=== PATIENT | female | born 1985 | race Caucasian/White ===

== ENCOUNTER 2020-09-09 02:15 | Emergency (ER) | payer OTHER ==
[2020-09-09 02:24] VITALS: BP 140/74; PULSE 103; TEMP 99.2; BMI 29.0
[2020-09-09 03:58] LABS: CHLORIDE 106 mmol/L (98-107); SODIUM 138 mmol/L (136-145)
[2020-09-09 04:00] LABS: BASO % 0.7 % (0-2.0); CALCIUM 8.9 mg/dL (8.5-10.1); EOS % 2.5 % (0-4.5); HEMOGLOBIN 13.2 GM/dL (10.7-15.3); LYMPH % 27.3 % (8-40); MCH 30.5 pg (25.7-33.7); MCHC 33.8 g/dl (32.0-36.0); MEAN CELL VOLUME 90.3 fl (80-96); MEAN PLT VOLUME 8.3 fl (7.5-11.1); MONO % 5.6 % (3.8-10.2); NEUT % 63.9 % (42.8-82.8); PLATELET COUNT 300 K/MM3 (134-434); RBC 4.32 M/mm3 (3.60-5.2); RDW 13.6 % (11.6-15.6); WHITE BLOOD COUNT 8.5 K/mm3 (4.0-10.0)
[2020-09-09 04:01] LABS: ANION GAP 5 MMOL/L (8-16); BLOOD UREA NITROGEN 14.4 mg/dL (7-18); CO2 27 mmol/L (21-32); GLUCOSE,RANDOM 95 mg/dL (74-106)
[2020-09-09 04:04] LABS: CREATININE 0.7 mg/dL (0.55-1.3); SGOT/AST 16 U/L (15-37); SGPT/ALT 27 U/L (13-61)
[2020-09-09 04:05] LABS: BILIRUBIN,TOTAL 0.3 mg/dL (0.2-1)
[2020-09-09 04:06] LABS: TOT PROT 7.2 g/dl (6.4-8.2)
[2020-09-09 04:07] LABS: ALK PHOS 78 U/L (45-117)
== END 2020-09-09 06:58 | disposition home or self-care (01) ==
LOC: FER 02:15
DX: R07.89 Other chest pain (principal)
CPT/HCPCS: 36415; 71275-TC; 80053; 82550; 84484; 84703; 85025; 85379; 93005; 99284-25; Q9967